=== PATIENT | female | born 1955 | race Caucasian/White ===

== ENCOUNTER 2025-10-06 13:12 | Emergency (ER) | payer OTHER, SELFPAY ==
--- OUTSIDE RECORDS SUMMARY | 2025-10-06 13:14 | XMS_ITS | Clinical Summary ---
Author Organization [facility] Address [address] [place] [address] Care Team Providers Care Student Activities Director Name Role Phone Jose M Carlson MD Unavailable [phone] Mei Wade MD Primary Care Provider [phone] Allergies Active AllergyReactionsCriticalityNoted XzuoIehuhsdqMgpepjmyqAvqi67/23/2012 Medications MedicationSigDispense QuantityRefillsLast FilledStart DateEnd DateStatus biotin 1 mg cap Take 1,000 mcg by mouth.Active fluticasone propion-salmeteroL (Advair Diskus) 250-50 mcg/Dose diskus inhaler Inhale 1 Puff by mouth every 12 hours.Active albuterol HFA 90 mcg/actuation inhaler Indications:Exacerbation of asthma, unspecified asthma severity, unspecified whether persistent (HC)Inhale 1-2 Puffs by mouth every 4 hours if needed for Shortness of Breath 1st choice or Wheezing 1st choice. 1 Each 5Active albuterol-ipratropium (2.5-0.5 mg) in 3 mL NEBULIZATION solution Indications:COPD exacerbation (HC)Inhale 3 mL via a nebulizer 4 times daily if needed for Shortness of Breath 2nd choice or Wheezing 2nd choice. 360 mL 5Active fluticasone propion-salmeteroL (Wixela Inhub) 250-50 mcg/Dose diskus inhaler Indications:Asthma, unspecified asthma severity, unspecified whether complicated, unspecified whether persistent (HC)Inhale 1 Puff by mouth every 12 hours. 180 Each 5Active fluticasone (50 mcg per actuation) nasal solution (FLONASE) Indications:Post-nasal dripInhale 1 [place] in both nostrils two times daily. 16 g 5Active albuterol 0.083% (2.5 mg/3 mL) neb solution Indications:Exacerbation of asthma, unspecified asthma severity, unspecified whether persistent (HC),COPD exacerbation (HC),Asthma, unspecified asthma severity, unspecified whether complicated, unspecified whether persistent (HC), Moderate persistent asthma with exacerbation (HC)Inhale 3 mL (2.5 mg) via a nebulizer every 6 hours if needed for Shortness of Breath 1st choice or Wheezing 1st choice. 120 mL 5Active sodium chloride 3% nebulization 3 % nebulizer solution Indications:COPD exacerbation (HC),Asthma, unspecified asthma severity, unspecified whether complicated, unspecified whether persistent (HC),Moderate persistent asthma with exacerbation (HC)Inhale 4 mL via a nebulizer 3 times daily if needed for Wheezing. 240 mL 5Active loratadine 10 mg tablet Indications:Seasonal allergiesTake 1 Tablet (10 mg) by mouth once daily. 90 Tablet 5Active nitroglycerin 0.4 mg sublingual tablet Indications:GRAY (dyspnea on exertion)Place 1 Tablet (0.4 mg) under the tongue every 5 minutes if needed for Chest Pain. If > 24 dosesin 30 days, provider to authorize 25 Tablet 5Active Nebulizer Indications:Moderate persistent asthma with exacerbation (HC)Nebulizer, disposable neb kit x 4, reuseable neb kit x 1, mask x 1, filters x 1. Frequency of use: daily; Medication: Duoneb Length of need: 99 months 1 Each 5Active semaglutide (weight loss) (Wegovy) 2.4 mg/0.75 mL subcutaneous pen Indications:Class 2 severe obesity with body mass index (BMI) of 35 to 39.9 with serious comorbidity,Prediabetes,S/P coronary artery stent placementInject 2.4 mg subcutaneous once weekly. 9 mL 5Active rosuvastatin (CRESTOR) 40 mg tablet Indications:S/P coronary artery stent placement,Pure hypercholesterolemiaTake 1 Tablet (40 mg) by mouth at bedtime. 90 Tablet 5Active montelukast (SINGULAIR) 10 mg tablet Indications:Moderate persistent asthma with exacerbation (HC)Take 1 Tablet (10 mg) by mouth at bedtime. 90 Tablet 5Active aspirin enteric coated 81 mg tablet Indications:S/P coronary artery stent placementTake 1 Tablet (81 mg) by mouth once daily with a meal. 90 Tablet 5Active tolterodine (DETROL LA) 4 mg Extended-Release capsule Indications:Urge incontinenceTake 1 Capsule (4 mg) by mouth once daily. 90 Capsule 5Active buPROPion (WELLBUTRIN XL) 300 mg Extended-Release tablet Indications:Grief reactionTake 1 Tablet (300 mg) by mouth once daily. 90 Tablet 5Active buPROPion (WELLBUTRIN XL) 300 mg Extended-Release tablet Indications:Grief reactionTake 1 Tablet (300 mg) by mouth once daily. 90 Tablet Discontinued(*Availability/Formulary change/Cost of medication) Active Problems ProblemNoted DateDiagnosed DateMorbid obesity with BMI of 40.0-44.9, adult 3Depression, /11/7897Msfznnojvfz95/02/2021Positive cardiac stress test12/23/2019Exertional chest pain12/23/2019Midline /22/2016 Vitamin D mrqkstmsbo42/13/2015Orthopedic aftercare for joint replacement 09/08/2012 Overview (09/15/2012): Left knee per MD Cody Krause [facility] Left knee pain05/18/2012 Overview (05/26/2012): Summer 2011: hyaluronic acid injection by Orthopedics without significant benefit. May 2012: injection cortisone Dr. Connor, pain significantly better from 8 down to 310. CAD (coronary artery disease)11/04/2011S/P coronary artery stent placement 11/04/20114846Mbrkqxlvtsnb07/23/2012Personal history of tobacco use, presenting hazards to bclhue6509/30/2011Screen for colon rgiooh4902/22/2011 Overview (02/22/2011): Colonoscopy 02/2011 normal repeat in 10 years Pain in joint, shoulder wkhiou5805/15/2009 Overview (05/15/2009): right shoulder: subacromial injection 2008 Headache(784.0)12/20/2008 Overview (12/20/2008): negative MRI december 2008. Started on topamax for prophylaxis. Urge nhyptxzcivii95/20/2006Bariatric surgery ontihw5309/01/2006 Overview (01/11/2011): PCP to handle skilled nursing labs table 4 Common Monitoring Parameters for Bariatric Surgery Patients Follow-up period Laboratory tests Every three months for first year Complete blood count, glucose, creatinine Every six months for first year Liver function tests, protein and albumin, iron, total iron-bindingcapacity, ferritin, vitamin B12, folic acid, calcium, parathyroid hormone (if hypercalcemic) CHEST PAIN08/05/20053363PKAKJAXPYOYMZOT91/24/8242ZEVXWUZ51/10/2004HEMORRHOIDS - ZDMBQFXSED44/10/2004S/P bariatric surgery Resolved Problems ProblemNoted DateDiagnosed DateResolved DateCOPD wqshrmywpwen58/02/2021 12/26/2023Vitamin D kyhimlpdbm45TOBACCO USE11/22/2003 09/30/2011 Encounters DateTypeDepartmentCare RstbQqblgaohztv76/11/2025Refill [facility] [address] [facility] [place] [address] Mei Wade MD Refill Request (Bupropion)08/25/2025 1:35 PM CSTOffice Visit [facility] [address] [place] [address] Mei Wade MD Amsevy6608/25/20256557Zysbne73/08/8052Ohfefn59/14/2025Refill [facility] [address] [place] [address] Mei Wade MD Refill Request (Wegovy)from Last 3 Months Immunizations ImmunizationAdministration DatesNext DueCOVID-19 VACCINE SPIKEVAX (MODERNA 50MCG/0.5ML) 12YO+ PFS08/25/2025OVID-19 vaccine (Moderna 100mcg/0.5mL) PF, MDV 09/17/2021Influenza Virus, Jlhtzfqbobr59/27/2016Influenza, IIV3 (Age >=3 years) 07/02/2012,08/12/2011,07/23/2010,08/14/2007,07/24/2006,09/15/2003,08/18/2002 Influenza, NOF615,06/29/2019,07/15/2018,09/05/2017,07/11/2015,09/07/2014 Influenza, Inactivated AIIV4 (Age 65+ Years) Preserv Free08/08/2023,07/08/2022, 08/08/2021Influenza, Inactivated IIV3 (Age 65+ Years) Preserv Free08/25/2025 Influenza,CCIIV4 PRESERV FREE07/04/2016Pneumococcal Conj 20-valent (Prevnar 20) 08/28/2022neumococcal Poly,23-Valent (Pneumovax)10/03/2020RSV, Bivalent Vaccine Reconstituted (Abrysvo 120MCG/0.5mL)10/23/2023Td (Age >=7 Years)05/28/2005Td, Preservative Free (age >= 7 Years)05/28/2005Tdap04/19/2018,04/22/2008,04/21/2008 Zoster (Shingrix-RZV, recombinant)07/08/2022,12/24/2021Zoster (Zostavax-ZVL, live)07/11/2015 Family History Medical HistoryRelationNameCommentsCancer-colonDaughterHeart attackFather Cancer-colonMaternal GrandfatherCancer-breastMaternal GrandmotherGeneticOther 1 breast cacner- MGMG, sisterGeneticOther 2Mother is 78 good health, HTN~Father is from [place] at 50's~2 biologic sisters, 3 half brothers, 4 step brothers.~A sister had breast cancer.Cancer-breastSisterdouble masectomyCancer-ovarianNo Family HistoryRelationNameStatusCommentsDaughterFatherMaternal Grandfather Maternal GrandmotherOther 1Other 2Sister Social History Tobacco UseTypesPacks/DayYears UsedDateSmoking Tobacco: FormerCigarettes0.237 1975 - 2012Smokeless Tobacco: Never Tobacco Cessation:Counseling Given: Yes Comments:quit smoking in 09/2019 but smoke once 2-3 wks Alcohol UseStandard Drinks/WeekCommentsYes0 (1 standard drink = 0.6 oz pure alcohol)wine now and thenPHQ-2AnswerDate RecordedPHQ-2 TOTAL PSJRD047 Social ConnectionsAnswerDate RecordedDo you often feel lonely or isolated from those around you?lcohol UseAnswerDate RecordedHow often do you have a drink containing alcohol?How many drinks containing alcohol do you have on a typical day when you are drinking?How often do you have five or more drinks on one occasion?Financial Resource StrainAnswer Date RecordedDifficulty of Paying Living Xpjoqtpe439/02/2025Difficulty of Paying Living ExpensesNot on file03/14/2025Food InsecurityAnswerDate RecordedDo you worry your food will run out before you are able to buy more? Transportation NeedsAnswerDate RecordedDoes lack of transportation keep you from medical appointments?Does lack of transportation keep you from work, meetings or getting things that you need?Housing StabilityAnswerDate RecordedWhat is your housing situation today?UtilitiesAnswerDate RecordedDo you have trouble paying for utilities (for example, heat, electricity, water, phone)?CommentsNoSex and Gender InformationValueDate RecordedSex Assigned at BirthNot on fileLegal SexFemale 10/26/2012 6:11 AM CSTGender IdentityNot on fileSexual OrientationNot on file OccupationIndustryJob Start DateJob End DateNot on fileNot on fileNot on fileNot on file Obstetrics History GravidaParaTermPretermABIABSABEctopicMultipleLivingLive [id number] OutcomeGATotal LaborLabor/2nd/1awLwizvqAlmAmhlYbkkMMGUjfO8Q2PeykUjkrBelq6i 00m 3.98 kg (8 lb 12.5 oz)FVagComplications:DxwqCjax8t 00m3.52 kg (7 lb 12 oz)FVag Complications:DsibSqrb6g 00m3.63 kg (8 lb)MVagComplications:None Last Filed Vital Signs Vital SignReadingTime TakenCommentsBlood Agmpmcbc087/7608/25/2025 1:53 PM FUNERAL PRE ARRANGEMENT COUNSELOR Shorp145208/25/2025 1:53 PM PDWRbjguagsxcd45.7 ??C (98.1 ??F)04/08/2023 10:41 AM CDTRespiratory Nkdq605103/15/2025 1:15 PM CDTOxygen Vestjvgqmb61%08/25/2025 1:53 PM CSTInhaled Oxygen Concentration--Uuknfc58.2 kg (196 lb 9.6 oz)08/25/2025 1:53 PM NZOKsbdlu607.1 cm (5' 5)03/15/2025 1:15 PM CDTpatient reportedBody Mass Index32.72003/15/2025 1:15 PM CDT Plan of Treatment DateTypeDepartmentCare Team (Latest Contact Info)Pvrckswuaob88/22/2026 11:15 AM CDTOffice Visit [facility] [address] [place] [address] Mei Wade MD [address] [place] [address] Health MaintenanceDue DateLast DoneCommentsCOVID-19 vaccine series (2024- season)6110/25/2024, 10/14/2024, 09/17/2021, Additional history exists BMI (ht and wt on same day) for age 18+6003/15/2025, 04/06/2024, 12/26/2023, Additional history existsDepression screening for age 12+06/07/2026 06/07/2025, 03/17/2025, 12/26/2023, Additional history existsMammogram for age 40-75086006/07/2025, 01/02/2024, 08/23/2022, Additional history exists Tetanus umngfgq11/05/2018, 04/22/2008, 04/21/2008, Additional history existsLipids for age 45-750/, 12/26/2023, 04/18/2021, Additional history existsColonoscopy through age 7510/03/2021, 07/18/2021, 07/18/2021, Additional history existsDEXA/DXA scan for age 65+ Mskysegxe14/02/2021Hepatitis C screening for age 18-83Irvbvrtya71/02/2021Zoster (shingles) series for age 50+Smxartyfe40/26/2022, 12/24/2021, 07/11/2015 Pneumococcal series for age 50+Layssinwx26/16/2022, 10/03/2020RSV vaccine for adults or kubffbjxmGgwcpnuij95/11/2024Influenza RuntaawTrtguvwbl87/13/2025, 08/08/2023, 07/08/2022, Additional history existsHepatitis B series for 19+Aged OutNo longer eligible based on patient's age to complete this topic Procedures Procedure NamePriorityDate/TimeAssociated DiagnosisCommentsXR MAMMO BILAT FSUFVWVPIFosafkm16/26/2025 10:10 AM CDT Visit for screening mammogram LIPID PANEL W REFLEX MEASURED CITBcblgty34/05/2025 3:38 PM CDT Class 2 severe obesity with body mass index (BMI) of 35 to 39.9 with serious comorbidity (HC) Pure hypercholesterolemia COLONOSCOPY GMAJTDHSTYgqnfuh62/06/2021 10:26 AM CDT Screening for colon cancer ANTI VXFRwufaps22/02/2021 2:55 PM CDT Need for hepatitis C screening test XR DXA BONE DENSITY 2 SITES SKMWOJpvhqox94/02/2021 2:49 PM CDT Postmenopausal from Last 3 Months or Most Recently Relevant to Health Maintenance Results * XR MAMMO BILAT SCREENING (06/07/2025 10:10 AM CDT)Anatomical RegionLaterality ModalityBREASTS, Breast Left, Breast RightBilateralMammographySpecimen (Source)Anatomical Location / LateralityCollection Method / VolumeCollection TimeReceived Time Impressions 06/07/2025 2:33 PM CDT There is no radiographic evidence for malignancy. Recommend annual mammograms. MAMMOGRAM ASSESSMENT: ??ACR 1 Negative PATIENTS: You will also receive a letter with your examination results in an easy to read format. ??If you have questions about your results, please contact your referring provider. Narrative 06/07/2025 2:33 PM CDT For Patients: As a result of the Cures Act, medical imaging exams and procedure reports are released immediately into your electronic medical record. You may view this report before your referring provider. If you have questions, please contact your health care provider. XR MAMMO BILAT SCREENING [[id number]] CLINICAL HISTORY: ??This is an asymptomatic 70 y.o. patient. INDICATION FOR EXAM: Mammogram Screening. TECHNIQUE: CC and MLO views were obtained. ??This study was evaluated with the assistance of Computer-Aided Detection. COMPARISON FILM: Yes 01/02/24 [employer] 08/23/22 [employer] FINDINGS: ??The breasts are almost entirely fatty. There are no dominant masses, suspicious micro calcifications or areas of architectural distortion. Authorizing ProviderResult TypeResult StatusMelissa Kaden Wade MDMAMMOFinal Result * LIPID PANEL W REFLEX MEASURED LDL (03/17/2025 3:38 PM CDT)ComponentValueRef RangeTest MethodAnalysis TimePerformed AtPathologist SignatureCHOLESTEROL, PQLQD534<200 mg/dLQuest netZentry DaleHDL FHGAIXCTPDS75> OR = 50 mg/dL MitoProd KgrlRALMDSDOSGDLU36<150 mg/dLQuest GFS IT-QlikTech DaleLDL-SGILTTGSQDE72hc/dL (calc)MitoProd DaleComment: Reference range: <100 Desirable range <100 mg/dL for primary prevention; <70 mg/dL for patients with CHD or diabetic patients with > or = 2 CHD risk factors. LDL-C is now calculated using the Castro calculation, which is a validated novel method providing better accuracy than the Friedewald equation in the estimation of LDL-C. Gerg HORTA et al. ANUP. 2013;310(19): 6172-8003 (http://education.Sportlobster/faq/GGD939) CHOL/HDLC RATIO2.2<5.0 (calc)[facility]Excel[facility] HDL WCVOADTUXCQ57 <130 mg/dL (calc)Frontera FilmsMaple Grove HospitaleComment: For patients with diabetes plus 1 major ASCVD risk factor, treating to a non-HDL-C goal of <100 mg/dL (LDL-C of <70 mg/dL) is considered a therapeutic option. Specimen (Source)Anatomical Location / LateralityCollection Method / Volume Collection TimeReceived TimeBloodBLOOD SPECIMEN / Hchthml8903/17/2025 3:38 PM CDT 03/17/2025 3:38 PM CDT Narrative Authorizing ProviderResult TypeResult StatusMelissa Kaden Wade [facility] – OKLAHOMA CITYHEMISTRYFinal ResultPerforming OrganizationAddressCity/State/ZIP CodePhone Number DaisyBill [facility] [address] [place] [address], [employer] [place] [address] [place] [address] * COLONOSCOPY (07/18/2021 11:07 AM CDT)Specimen (Source)Anatomical Location / LateralityCollection Method / VolumeCollection TimeReceived Time07/18/2021 11:07 AM CDT Narrative Transcriptions Greg Velazco MD - 07/18/2021 11:42 AM CDT Patient Name: Hanna Cherry Procedure Date: 07/18/2021 Gender: Female Date of : 1955 Admit Type: Outpatient Procedure: Colonoscopy Proceduralist: Greg Velazco MD , Myriam Parker (Nurse) Referring MD: Mei Wade Indications/Pre-Op Diagnosis: Screening for colorectal malignant neoplasm, Last colonoscopy: February 2011 Medications: Fentanyl 200 micrograms IV, Midazolam 2 mgIV, The level of sedation administered wasmoderate Procedure Description: The patient had risks, benefits and alternatives explained to andgave informed consent. The patient had a stable cardiopulmonary status and judged an adequate candidate for conscious sedation. The Colon CF-H180AL [id number] was passed through the anus and advancedto the cecum, identified by appendiceal orifice and ileocecal valve. The colonoscopy was performed without difficulty. The patient toleratedthe procedure well. The quality of the bowel preparation was good. The ileocecal valve, appendiceal orifice, and rectum were photographed. Complications: No immediate complications. Estimated Blood Loss & Specimen: Estimated blood loss: none. Specimen collected - None Findings: The perianal and digital rectal examinations were normal. The entire examined colon appeared normal on direct and retroflexion views. Impressions/Post-Op Diagnosis: - The entire examined colon is normal on direct and retroflexionviews. - No specimens collected. Recommendation: - Patient has a contact number available for emergencies. The signsand symptoms of potential delayed complications were discussed with the patient. Return to normal activities tomorrow. Written discharge instructions were provided to the patient. - Resume previous diet. - Continue present medications. - Repeat colonoscopy in 10 years for screening purposes. Moderate Sedation: Moderate (conscious) sedation was administered by the endoscopy nurse and supervised by the endoscopist. The following parameters were monitored: oxygen saturation, heart rate, respiratory rate, blood pressure, adequacy of pulmonary ventilation and reponse to care. Please refer to the patient's medical record flowsheets and nursing notes for moderate sedation details. Total physician intraservice time was 19 minutes. Greg Velazco MD 07/18/2021 11:42:38 AM This report has been signed electronically. Note Initiated On: 07/18/2021 11:07 AM Procedure Code(s): --- Professional --- 00151, Colonoscopy, flexible; diagnostic, including collection of specimen(s) bybrushing or washing, when performed (separateprocedure) Diagnosis Code(s): --- Professional --- Z12.11, Encounter for screening formalignant neoplasm of colon CPT copyright 2020 [employer]. All rights reserved. The codes documented in this report are preliminary and upon manufacturing engineering intern reviewmay be revised to meet current compliance requirements. Scope In: 11:16:15 AM Scope Withdrawal Time 0 hours 6 minutes 43 seconds Scope Out: 11:33:38 AM Authorizing ProviderResult TypeResult StatusGreg Velazco MDPROCEDURE ORD Final Result * ANTI HCV (06/14/2021 2:55 PM CDT)ComponentValueRef RangeTest MethodAnalysis TimePerformed AtPathologist SignatureHEPATITIS C ANTIBODYNon-Reactive Non-Vypwgyjd26/02/2021 9:[address] [facility] Comment:Antibodies to HCV not detected; does not exclude the possibility of exposure to HCV.Specimen (Source)Anatomical Location / LateralityCollection Method / VolumeCollection TimeReceived TimeBloodBLOOD SPECIMEN / Unknown Venipuncture / Qxtepci3406/14/2021 2:55 PM CDT06/14/2021 2:55 PM CDT Narrative Authorizing ProviderResult TypeResult StatusMelcarlie Wade MDSEND OUTSFinal ResultPerforming OrganizationAddressCity/State/ZIP CodePhone Number [facility] [address] [place] [address], * (ABNORMAL) XR DXA BONE DENSITY 2 SITES AXIAL [03536.1] (06/14/2021 2:49 PM CDT)Anatomical RegionLateralityModalitySpine, HIPS, HIPL, HIPROtherSpecimen (Source)Anatomical Location / LateralityCollection Method / VolumeCollection TimeReceived Time Impressions 06/19/2021 1:46 PM CDT Osteopenia. RECOMMENDATIONS: The National Osteoporosis Foundation recommends pharmacologic treatment for patients with T-scores of -2.5 or less, patients with prior history of fragility fractures, or patients with 10-year probability of greater than 3% at hips or greater than 20% of suffering major osteoporotic fractures. Recommend continued optimization of calcium and vitamin D intake through dietary means and/or supplementation and regular exercise. Repeat scan recommended in 3-5 years. Adina Melton PA-C [facility] 06/19/2021 Narrative 06/19/2021 1:46 PM CDT For Patients: Results are automatically released to your [facility] ([employer]) account once available, in compliance with federal regulations. This means that you may see your results before your provider has had a chance to review them. Please allow 2-3 business days for your provider to comment on the results. XR DXA Bone Mineral Density (BMD) EXAM LOCATION: [address] [address] PATIENT NAME: Hanna Cherry DATE OF : 1955 EXAM DATE: 06/14/2021 REQUESTING PROVIDER: Mei Wade MD GENDER AT : female HEIGHT: 5' 5.67 (06/14/2021) WEIGHT: ??241 lb 12.8 oz (06/14/2021) MENOPAUSAL STATUS: Postmenopausal RACE/ETHNICITY: White RISK FACTORS: Bariatric Surgery, Smoking (prior) and White Race CURRENT MEDICATION FOR BONE LOSS: NONE INDICATION: Initial scan for screening COMPARISON DATE(S): None DXA scans are compared to prior studies for a patient only when the two (or more) studies were performed on the same scanner. It is not possible to compare data generated on one scanner to data from another because there are not standards in DXA equipment. This applies even if the two scanners are made by the same patient monitor. PROCEDURE: Dual-energy x-ray absorptiometry performed with routine technique. Reporting is completed in the form of a T-score. The T-score represents the standard deviation from peak bone mass based on young healthy adult. A Z-score is used for diagnosis in premenopausal women, and for men under the age of 50. FINDINGS: RESULT LUMBAR SPINE L1 - L4 BMD: 1.175 g/cm2 T-Score: - 0.2 Z-Score: + 0.3 RESULT TOTAL FEMUR Left Femoral Neck BMD: 0.889 g/cm2 Left Total Femur BMD: 0.985 g/cm2 RESULT FEMORAL NECK Right Femoral Neck T-Score: - 0.9 Left Femoral Neck T-Score: - 1.1 ?? Right Femoral Neck Z-Score: - 0.2 Left Femoral Neck Z-Score: - 0.4 RESULT TOTAL HIP {Right Hip T-Score: + 0.0 Left Hip T-Score: - 0.2 Right Hip Z-Score: + 0.3 Left Hip Z-Score: + 0.2 WHO criteria: Normal: T-score at or above -1 SD Osteopenia: T-score between -1.1 and -2.4 SD Osteoporosis: T-score at or below -2.5 SD FRAX RISK CALCULATION (USED FOR OSTEOPENIA ONLY): 10-year probability of major osteoporotic fracture: 7.2%. 10-year probability of hip fracture: 0.5%. Authorizing ProviderResult TypeResult StatusMelcarlie Kaden Sheri MDDEXAFinal Result from Last 3 Months or Most Recently Relevant to Health Maintenance Insurance * Guarantor: Hanna Cherry TypeRelation to PatientDate of BirthPhone Billing AddressPersonal/TuxdiqVxig1955 [address] [place] [address] Advance Directives * Full Code (Latest Code Status on File) Date ActivatedDate [facility]12/23/2019 11:17 AM3/09/2020 4:34 PM * Full Code Date ActivatedDate InactivatedComments10/29/2011 6:09 AM10/29/2011 8:13 PM Care Teams Team MemberRelationshipSpecialtyStart DateEnd Date Mei Wade MD [address] [place] [address] PCP - GeneralFamily Uubuyqxc55/28/16 Jose M Carlson MD [address] [place] [address] Consulting PhysicianCardiovascular Exsfnhl86/23/15
[2025-10-06 13:18] VITALS: BP 111/76; PULSE 95; RESP 20; TEMP 36.6; O2SAT 96; BMI 30.3
--- NOTE | 2025-10-06 13:31 | ED.GENADULT ---
HPI - General Adult General Chief complaint: Neck Injury/Pain Stated complaint: neck pain Time Seen by Provider: 10/06/25 13:13 History of Present Illness HPI narrative: Patient is a 70-year-old woman who has a known cervical radiculopathy. Impingement on the C6 nerve root and is scheduled to meet with a surgeon in 4 days. Patient has oxycodone at home as well as hydroxyzine. She is under the care of a neurosurgeon currently anticipating surgery to follow-up. She states that she has nothing new as far as pain the pain radiates from the left side of her neck down into the left shoulder and arm. She has no bowel or bladder symptoms no fevers no chills. No muscular weakness. Patient is unable to keep her pain under control is requesting some pain medications intramuscularly in the short term knowing that she has access to oxycodone at home. 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 Related Data Home Medications ?Medication ?Instructions ?Recorded ?Confirmed aspirin 81 mg tablet,delayed 81 mg PO DAILY 10/06/25 10/06/25 release bupropion HCl 300 mg 24 hr tablet, 300 mg PO DAILY 10/06/25 10/06/25 extended release gabapentin 300 mg capsule mg PO 10/06/25 montelukast 10 mg tablet 10 mg PO QPM 10/06/25 10/06/25 oxycodone 5 mg tablet 5 - 10 mg PO Q6-8H 10/06/25 10/06/25 rosuvastatin 40 mg tablet 40 mg PO QPM 10/06/25 10/06/25 semaglutide (weight loss) 2.4 2.4 mg subcut 10/06/25 mg/0.75 mL subcutaneous pen injector (Wegovy) tolterodine 4 mg capsule,extended 4 mg PO DAILY 10/06/25 10/06/25 release 24 hr Allergies Allergy/AdvReac Type Severity Reaction Status Date / Time prasugrel (From Effient) Allergy rash Verified 03/12/23 10:51 Review of Systems Status of ROS: Reports: 10 or more systems reviewed and unremarkable except as noted in History and below Exam Narrative: Exam Narrative: EXAM GENERAL: Patient appears comfortable and well. EYES: No scleral icterus. LYMPH: No supraclavicular or cervical lymphadenopathy. SKIN: Visible skin seen during exam normal or with benign process only. EXT: No dependent lower extremity pedal edema. HEART: Regular rate and rhythm with no murmurs, rubs, or gallops. LUNGS: Clear to auscultation bilaterally with no crackles or wheezes. ABD: Soft, non tender, non distended. PSYCH: Good eye contact, speech is not pressured. Const: Vital Signs, click to edit/add: Vital Signs - 24 hr 10/06/25 13:18 Temperature 97.9 F Pulse Rate [Right] 95 Respiratory Rate 20 Blood Pressure [Ri ght Upper Arm] 111/76 Pulse Oximetry 96 Oxygen Delivery Me thod Room Air Course Course ED Course: Patient seen examined. We did carefully review her home medications. Do think it is reasonable to give her a small dose of Dilaudid and Toradol here as well as a dose of oral Zofran. She will continue home medications. She is under the watchful eye of her . She does have outpatient follow-up with neuro surgery. Vital Signs Vital signs: Initial Vital Signs Temperature 97.9 F 10/06/25 13:18 Temperature Source Temporal Artery Scan 10/06/25 13:18 Pulse Rate 95 10/06/25 13:18 Pulse Rhythm Regular 10/06/25 13:18 Pulse Strength 3+ Normal 10/06/25 13:18 Respiratory Rate 20 10/06/25 13:18 Blood Pressure 111/76 10/06/25 13:18 Blood Pressure Mean 87 10/06/25 13:18 Blood Pressure Position Sitting 10/06/25 13:18 Pulse Oximetry 96 10/06/25 13:18 Oxygen Delivery Method Room Air 10/06/25 13:18 Vital Signs Temperature 97.9 F 10/06/25 13:18 Pulse Rate 95 10/06/25 13:18 Respiratory Rate 20 10/06/25 13:18 Blood Pressure 111/76 10/06/25 13:18 Pulse Oximetry 96 10/06/25 13:18 Oxygen Delivery Method Room Air 10/06/25 13:18 Temperature 97.9 F 10/06/25 13:18 Pulse Rate 95 10/06/25 13:18 Respiratory Rate 20 10/06/25 13:18 Blood Pressure 111/76 10/06/25 13:18 Pulse Oximetry 96 10/06/25 13:18 Oxygen Delivery Method Room Air 10/06/25 13:18 Discharge Plan Discharge Clinical Impression: Cervical radiculopathy Patient Disposition: Home, Self-Care Condition: Stable Instructions: Cervical Radiculopathy (ED) Additional Instructions: Continue current pain medication Continue outpatient follow-up. Activity Level: No Restrictions Discharge Diet: Regular Prescriptions: No Action tolterodine 4 mg capsule,extended release 24hr 4 mg PO DAILY aspirin 81 mg tablet,delayed release (DR/EC) 81 mg PO DAILY gabapentin 300 mg capsule PO montelukast 10 mg tablet 10 mg PO QPM oxycodone 5 mg tablet 5 - 10 mg PO Q6-8H rosuvastatin 40 mg tablet 40 mg PO QPM bupropion HCl 300 mg tablet extended release 24 hr 300 mg PO DAILY Wegovy 2.4 mg/0.75 mL pen injector 2.4 mg subcut Follow Up/Referrals: Mei Wade MD [Primary Care Provider, Family Practice] [facility] Info Inst[facility]
[2025-10-06] MEDS: ONDANSETRON ODT 4 MG TAB PO (13:38)
== END 2025-10-06 13:52 | disposition home or self-care (01) ==
PROVIDERS: Emergency Provider Internal Medicine; PCP Family Medicine
DX: M54.12 Radiculopathy, cervical region (principal)
CPT/HCPCS: 99283; 99284; A9270; J1171; J1885